=== PATIENT | male | born 1990 | race Caucasian/White ===

== ENCOUNTER 2017-12-01 10:03 | Emergency (ER) | payer BC, SELFPAY ==
[2017-12-01] MEDS ORDERED: Triamcinolone 40 MG/ML VIAL ONE ×2 (10:18→10:22)
== END 2017-12-01 10:47 | disposition home or self-care (01) ==
LOC: MADERS 10:03
DX: L23.7 Allergic contact dermatitis due to plants, except food (principal); F17.220 Nicotine dependence, chewing tobacco, uncomplicated
CPT/HCPCS: 96372; J3301

== ENCOUNTER 2018-08-25 07:41 | Emergency (ER) | payer BC ==
[2018-08-25 08:19] LABS: Bilirubin Small (Negative); Blood, Urine Moderate (Negative); Clarity Clear (Clear); Glucose, Urine (Dipstick) Negative (Negative); Leukocyte Negative (Negative); Nitrite Negative (Negative); Protein, Urine (Dipstick) Negative (Neg-Trace); pH, Urine 6.5 (5.0-9.0)
[2018-08-25 08:26] LABS: Bacteria/HPF Rare-Few HPF (None Seen); Squamous Epithelial 0-3 HPF (0-3); WBC/HPF 0-3 HPF (0-3)
[2018-08-25] MEDS ORDERED: Acetaminophen 500 MG TAB ONE (08:44)
== END 2018-08-25 09:00 | disposition home or self-care (01) ==
LOC: MADERS 07:41
DX: B34.9 Viral infection, unspecified (principal); R31.9 Hematuria, unspecified; F17.220 Nicotine dependence, chewing tobacco, uncomplicated
CPT/HCPCS: 81003; 81015; 87081; 87430; 87804; 99283

== ENCOUNTER 2019-12-09 14:44 | Emergency (ER) | payer BC | END 2019-12-09 16:06 | disposition home or self-care (01) | LOC: MADERS 14:44 | DX: R10.9 Unspecified abdominal pain (principal); F17.220 Nicotine dependence, chewing tobacco, uncomplicated | CPT/HCPCS: 99283 ==